=== PATIENT | female | born 1985 | race Caucasian/White ===

== ENCOUNTER 2017-03-22 18:02 | Emergency (ER) | payer SELFPAY ==
[~2017-03-22] VITALS: Ht 160 cm; Wt 78.6 kg
[2017-03-22] MEDS ORDERED: KETOROLAC 60 MG/2 ML VIAL (J1885) IM ONE (18:45)
[2017-03-22] MEDS ORDERED: METOCLOPRAMIDE 10 MG TAB PO ONE (18:45)
[2017-03-22 20:07] VITALS: BP 150/87
== END 2017-03-22 20:16 | disposition home or self-care (01) ==
LOC: M ED 18:02
DX: R51 Headache (principal); B34.9 Viral infection, unspecified; F17.200 Nicotine dependence, unspecified, uncomplicated; Z88.5 Allergy status to narcotic agent
CPT/HCPCS: 81001; 81025; 96372; 99283; J1885